=== PATIENT | male | born 1970 | race Caucasian/White ===

== ENCOUNTER 2021-02-19 19:14 | Day surgery (SDCO) | payer OTHER ==
[~2021-02-19] VITALS: Ht 177.8 cm; Wt 57.8 kg
[2021-02-19 19:48] LABS: BASOPHIL 0.2 % (0-2); EOSINOPHIL 0.1 % (0-5); HCT 50.7 % (42.0-52.0); HGB 17.6 g/dl (13.2-18.0); LYMPHOCYTE 10.9 % (15-48); MCH 31.3 pg (25.0-31.0); MCHC 34.7 g/dL (32.0-36.0); MCV 90.2 fL (78.0-100.0); MONOCYTE 7.6 % (0-12); MPV 9.9 fL (6.0-9.5); NEUTROPHIL 80.7 % (41-80); NRBC 0; PLT 213 K/uL (150-400); RBC 5.62 M/uL (4.70-6.00); RDW 11.6 % (11.5-14.0); WBC 8.2 K/uL (4.0-10.5)
[2021-02-19 20:09] LABS: ALBUMIN 3.7 g/dL (3.4-5.0); BILIRUBIN - TOTAL 1.1 mg/dL (0.2-1.0); BUN/CREAT RATIO (CALC) 23.7 RATIO; CREATININE 0.97 mg/dL (0.67-1.17); GLOBULIN (CALCULATION) 3.1 g/dL; MAGNESIUM 2.2 mg/dL (1.8-2.4); PHOSPHORUS 3.3 mg/dL (2.6-4.7); POTASSIUM 5.3 mmol/L (3.5-5.1); TOTAL PROTEIN 6.8 g/dL (6.4-8.2)
[2021-02-19 20:16] LABS: LACTIC ACID 1.7 mmol/L (0.4-1.9)
[2021-02-19 21:03] LABS: BILIRUBIN 2+ mg/dL (NEGATIVE); BLOOD NEGATIVE Ery/uL (NEGATIVE); CLARITY CLEAR (CLEAR); COLOR YELLOW (YELLOW); GLUCOSE (U) NORMAL (NORMAL); LEUKOCYTES NEGATIVE Leu/uL (NEGATIVE); NITRITE NEGATIVE (NEGATIVE); PROTEIN TRACE (LOW) mg/dL (NEGATIVE); SPECIFIC GRAVITY >=1.030 (1.001-1.030); UROBILINOGEN 0.2 mg/dL (0.2-1.0)
[2021-02-19 21:08] LABS: SQUAMOUS EPITHELIAL CELLS RARE
[2021-02-20 01:33] LABS: CORONAVIRUS 2019 SARS-COV-2 POSITIVE (NEGATIVE); INFLUENZA A NAA NEGATIVE (NEGATIVE)
[2021-02-20] MEDS ORDERED: ATENOLOL25 MG PO (01:42)
[2021-02-20] MEDS ORDERED: SYNTHROID125 MCG PO (01:43)
[2021-02-20] MEDS ORDERED: OS-CAL500 MG PO (01:44)
[2021-02-20] MEDS ORDERED: DECARA625 MCG PO (01:45)
[2021-02-20] MEDS ORDERED: ZESTRIL5 MG PO (01:47)
[2021-02-20] MEDS ORDERED: PRAVACHOL20 MG PO (01:48)
[2021-02-20] MEDS ORDERED: ZOFRAN4 M1 PO ×2 (01:49→14:14)
[2021-02-20 05:56] LABS: BASOPHIL 0.1 % (0-2); EOSINOPHIL 0.1 % (0-5); HGB 15.2 g/dl (13.2-18.0); LYMPHOCYTE 13.6 % (15-48); MCH 31.5 pg (25.0-31.0); MCHC 34.5 g/dL (32.0-36.0); MCV 91.1 fL (78.0-100.0); MONOCYTE 8.8 % (0-12); MPV 9.8 fL (6.0-9.5); NRBC 0; PLT 207 K/uL (150-400); RBC 4.83 M/uL (4.70-6.00); RDW 11.6 % (11.5-14.0)
[2021-02-20 06:22] LABS: BUN/CREAT RATIO (CALC) 23.9 RATIO; CREATININE 0.71 mg/dL (0.67-1.17); POTASSIUM 4.4 mmol/L (3.5-5.1)
== END 2021-02-20 13:36 | disposition home or self-care (01) ==
LOC: FER 19:14 → FMS 02-20 00:22
PROVIDERS: Emergency Medicine Emergency Medical Services; Nurse Practitioner; ADMIT Internal Medicine
DX: U07.1 COVID-19 (principal); K52.9 Noninfective gastroenteritis and colitis, unspecified; E86.0 Dehydration; I10 Essential (primary) hypertension; E78.5 Hyperlipidemia, unspecified; E89.0 Postprocedural hypothyroidism; Z85.850 Personal history of malignant neoplasm of thyroid; Z79.899 Other long term (current) drug therapy
CPT/HCPCS: 36415; 71045; 74018; 80048; 80053; 81001; 82150; 83605; 83690; 83735; 84100; 84145; 84484; 85025; G0378; J1650; J2405; J7030; J7120; U0002